=== PATIENT | male | born 1995 | race Caucasian/White ===

== ENCOUNTER 2025-05-10 15:39 | Emergency (ER) | payer OTHER, SELFPAY ==
[2025-05-10 15:45] VITALS: BP 158/115
[2025-05-10 16:34] LABS: ALT (SGPT) 78 U/L (0-50); AST (SGOT) 144 U/L (17-59); Albumin 5.4 g/dl (3.5-5.0); Alkaline Phosphatase 81 U/L (38-126); Blood Urea Nitrogen 19 mg/dl (9-20); Calcium 10.1 mg/dl (8.4-10.2); Carbon Dioxide 21 mmol/L (22-30); Chloride 96 mmol/L (98-107); Glucose 111 mg/dl (70-99); Lipase 173 U/L (23-300); Potassium 3.8 mmol/L (3.5-5.1); Sodium 131 mmol/L (135-145); Total Protein 8.1 g/dl (6.3-8.2); eGFR > 60.00
[2025-05-10 16:42] LABS: Hematocrit 35.2 % (39.0-52.0); Hemoglobin 12.9 g/dL (13.0-18.0); Mean Corp Hgb Conc. 36.6 g/dL (33.0-37.0); Mean Corpuscular Volume 100.9 fL (80.0-94.0); Nucleated Red Blood Cells % 0 % (-); Platelet Count 181 10^3/uL (130-400); Red Cell Dist. Width 11.7 % (11.5-14.5)
[2025-05-10 20:06] VITALS: BP 148/107
[2025-05-10 20:07] VITALS: BMI 34.1
--- NOTE | 2025-05-10 20:26 | ED.GENMED ---
History of Present Illness
General
Chief Complaint: Abdominal Symptoms
Time Seen by Provider: 05/10/25 19:50
History of Present Illness
History of Present Illness:
30-year-old male with history of daily alcohol abuse presenting to the emergency department with upper abdominal pain. Patient reports generalized upper abdominal pain for the past several days. Does admit to having a liquor abuse. For the past 2
days, has noticed that his stools have been very dark. Also had an episode of vomiting yesterday, brown in color. Notes general decreased oral intake. He tried OTC medications without relief. Denies any usage of Pepto-Bismol. Reports of
generalized fatigue and lightheadedness. Denies any vomiting of bright red blood. Denies any abdominal surgeries in the past. Denies chest pain or difficulty breathing. Denies any history of GI bleed or stomach ulcers. Does note some general
history of gastric reflux. Denies additional medical complaints
Past History
Past History
ED Past Medical History: Hypothyroidism
ED Past Surgical History: None
Social History
Living: with family
Phy Exam
Physical Exam
Physical Exam:
General: Well-appearing, no clinical signs of dehydration, nontoxic and in no acute distress
HEENT: protecting airway
Neck: appears supple
CV: Normal heart rate, regular rhythm, no evidence of cyanosis
Resp: No accessory muscle use, no increased work of breathing, lungs clear to auscultation bilaterally
Abd: Soft and non-distended, mild tenderness right upper quadrant without rebound or guarding
Extremities: No deformities, no swelling
Neuro: alert, no focal neurologic deficit
: deferred
Rectal: deferred
Psych: Normal affect
Skin: Intact
Course
Orders/Labs/Results
Orders:
Orders
05/10/25 16:03
Complete Blood Count/With Diff Urgent
Comprehensive Metabolic Panel Urgent
Lipase Urgent
05/10/25 20:15
0.9% Sodium Chloride 1000 ml [Nss] 1,000 ml IV BOLUS
Pantoprazole [Protonix IV] 40 mg IV NOW STA
US Abdomen Complete/Upper Urgent
Comment:
Reason For Exam: RUQ pain, ETOH hx
05/10/25 20:26
Type+Screen Urgent
BBK Wristband Number:
PTT Routine
Prothrombin Time Routine
05/10/25 21:59
ABO2 Urgent
BBK Wristband Number:
Associate notified that ABO2 has been ordered: [id number]
Date: 05/10/25
Time: 21:49
Main Gal[facility] Scullion ID: [id number]
Abnormal Lab Results
05/10/25
16:03
RBC 3.49 L 10^6/uL
(4.70-6.10)
Hgb 12.9 L g/dL
(13.0-18.0)
Hct 35.2 L %
(39.0-52.0)
MCV 100.9 H fL
(80.0-94.0)
MCH 37.0 H pg
(27.0-31.0)
MPV 10.5 H fL
(7.4-10.4)
Absolute Lymphs (auto) 1.1 L 10^3/uL
(1.2-3.4)
Lymphocytes % 16.4 L %
(20.5-51.1)
Sodium 131 L mmol/L
(135-145)
Chloride 96 L mmol/L
(98-107)
Carbon Dioxide 21 L mmol/L
(22-30)
Glucose 111 H mg/dl
(70-99)
AST 144 H U/L
(17-59)
ALT 78 H U/L
(0-50)
Albumin 5.4 H g/dl
(3.5-5.0)
05/10/25 16:03
05/10/25 16:03
Vital Signs
Initial and Last Documented VS:
Initial Vital Signs
Temp Pulse Resp BP Pulse Ox
99.3 F 120 16 158/115 100
05/10/25 15:45 05/10/25 15:45 05/10/25 15:45 05/10/25 15:45 05/10/25 15:45
Last Documented Vital Signs
Temp Pulse Resp BP Pulse Ox
99.3 F 89 20 148/107 99
05/10/25 15:45 05/10/25 21:26 05/10/25 21:26 05/10/25 20:06 05/10/25 21:26
MDM/Problems Addressed
MDM/Problems Addressed:
30-year-old male with history of EtOH abuse presenting to the emergency department for upper abdominal pain and concern for dark stools. Vital signs on arrival are blood pressure.
On exam, patient is resting comfortably, no acute distress or discomfort. Minimal tenderness to the upper abdomen without rebound or guarding. Patient afebrile nontoxic. Patient is Hemoccult positive, brown stool. Patient symptoms are concerning
for upper GI bleed, particularly given his history of excessive alcohol abuse. No concern for variceal bleed at this time, any bright red blood by mouth. Labs obtained prior to my assessment, hemoglobin is 12.9, without concern for any significant
GI hemorrhage. Liver enzymes are slightly elevated, consistent with alcohol abuse. Given patient's tenderness on exam, ultrasound imaging of the abdomen. Will administer fluids and pantoprazole. Suspect component of mild dehydration,
tachycardic. Will continue to closely monitor.
23:15 -patient's ultrasound without significant acute abnormality. On reassessment, patient remained stable. Discussed options of admission versus outpatient follow-up. Do feel reasonable for outpatient follow-up given hemodynamic instability,
however patient will need to be started on PPI with more urgent GI follow-up for likely endoscopy. Did discuss importance of EtOH cessation. Also discussed the possibility of admission with GI consultation. Patient would prefer to go home.
Message sent to GI front desk associate for more urgent follow-up. Strict return precautions indicated and patient verbalized understanding
*Pulse Oximetry
SaO2: 99
Oxygen Mode of Delivery: Room air
Patient hypoxic: no
*Critical Care Note
Total Time (30-74mins, 75-104mins- exclusive of procedures): Not Applicable
ED Attending Note
-
Portions of this chart may have been created with voice recognition software.� Occasional wrong word or��sound alike� substitutions may have occurred due to the inherent limitations of voice recognition software.
Discharge Plan
Departure
Patient Disposition: Home (Routine Discharge)
Date of Disposition: 05/10/25
Time of Disposition: 23:21
Patient with high blood pressure during this ER visit?: No
Condition: Good
Discharge Problem:
Upper gastrointestinal bleeding
Instructions: [place] Diet, GI bleed - Discharge instructions
Prescriptions:
New
pantoprazole 20 mg tablet,delayed release (DR/EC)
20 mg PO DAILY Qty: 30 0RF
Referrals:
Josias Soler MD [Family Provider, Family Practice]
Tony Guaman DO [Active, Gastroenterology]
Activity Restrictions/Additional Instructions:
You were seen in the emergency department for dark stools
You were found to have blood in your stool, however your vital signs and blood work was reassuring. We recommend that you follow-up urgently with GI for additional testing. You were started on pantoprazole. Please take daily and adhere to a bland
diet. We also recommend that you stop drinking, which could be contributing to your symptoms.
Please follow-up closely with your primary care physician.
Return to the emergency department for any worsening of your symptoms, or any development of chest pain, difficulty breathing, abdominal pain with persistent vomiting and inability to tolerate food or liquid by mouth (concern for dehydration),
weakness, headache or confusion, fever greater than 100.4, or any additional symptoms that are concerning to you.
Thank you for choosing [facility].
Interventions
Interventions:
*Risk Screen - Suicide Last Done: 05/10/25 20:07
*General Assessment Last Done: 05/10/25 20:07
*Neglect/Abuse Screening Last Done: 05/10/25 20:07
*ED- Fall Risk Assessment Last Done: 05/10/25 20:07
*ED COVID-19 Vaccine History Last Done: 05/10/25 20:07
CS-Cpggkn-Lyxovivzfd Assessment Last Done: 05/10/25 20:09
Discharge Date and Time
Print Language: BELARUSIAN
[2025-05-10] MEDS: PROTONIX IV 40 MG IV (20:29)
[2025-05-10] MEDS: NSS 1000 IV (20:31)
[2025-05-10 20:49] LABS: INR 0.97; PT 13.4 Sec (11.4-14.6)
[2025-05-10 20:50] LABS: APTT 27.1 Sec (23.4-35.0)
[2025-05-10 22:00] VITALS: BP 142/102
[2025-05-10 23:00] VITALS: BP 136/103
[2025-05-11] VITALS: BP 142/97
== END 2025-05-11 00:14 | disposition home or self-care (01) ==
LOC: EMR 15:39
PROVIDERS: Emergency Medicine; EMERGENCY PHYSICIAN Student in an Organized Health Care Education/Training Program; FAMILY PHYSICIAN Family Medicine
DX: K92.2 Gastrointestinal hemorrhage, unspecified (principal); E03.9 Hypothyroidism, unspecified; R42 Dizziness and giddiness; R53.83 Other fatigue
CPT/HCPCS: 96374; 96361; 99284; 76700; 80053; 83690; 85025; 85610; 85730; 86850; 86900; 86901

== ENCOUNTER 2025-05-20 06:28 | Day surgery (SDC) | payer OTHER, SELFPAY | END 2025-05-20 11:41 | disposition home or self-care (01) | LOC: GI 06:28 | PROVIDERS: ATTENDING PHYSICIAN Internal Medicine Gastroenterology | DX: R10.13 Epigastric pain (principal); R10.31 Right lower quadrant pain; K29.70 Gastritis, unspecified, without bleeding; K92.1 Melena | CPT/HCPCS: 43239; 88305; 88342 ==

== ENCOUNTER 2025-07-06 14:29 | Emergency (ER) | payer OTHER, SELFPAY ==
[2025-07-06 14:36] VITALS: BP 141/93
--- NOTE | 2025-07-06 15:06 | ED.GENMED ---
History of Present Illness
General
Chief Complaint: Withdrawal Symptoms
Time Seen by Provider: 07/06/25 14:51
Nursing documentation reviewed up to this point in time: agreed with
History of Present Illness
History of Present Illness:
30-year-old male presents to the ER for evaluation of possible alcohol withdrawal. Patient denies any prior history of alcohol withdrawal seizures. He states that he drinks between 10 and 20 shots of vodka daily, his last ingestion was at 3:00
this morning. He reports poor appetite over the past several days. He feels nauseated but has not had any vomiting. He denies any prior history of similar abdominal discomforts. He had been seen previously this year for symptoms of alcohol use
disorder, he has never been to rehab and does not believe that he would like to go to rehab today. No fevers or chills. No syncope. No change in vision. Positive mild headache
Past History
Past History
ED Past Medical History: Hypothyroidism
ED Past Surgical History: None
Social History
Living: with family
Review of Systems
Review of Systems
Allergies reviewed?: Yes
Phy Exam
Physical Exam
Physical Exam:
Patient is awake, alert, appears in no acute distress, positive alcohol on breath, diffusely tremulous, moving himself slowly around the room but with a steady gait head is NCAT, PERRL, EOMI mucous membranes moist, conjunctiva pink, heart regular
rate and rhythm without murmurs or ectopy, lungs are clear to auscultation without wheezes rales or rhonchi, no JVD, abdomen is soft and nontender on palpation, extremities without edema, GCS is 15, no asterixis, no palmar erythema
Course
Orders/Labs/Results
Orders:
Orders
07/06/25 14:51
Electrocardiogram (*1) Urgent
Reason for Study: Palpitations
Bedside Glucose- Treatment ONCE
EKG- Treatment ONCE
Urine Drug Abuse Screen Urgent
Pulse Ox/cont/shift [RESP] Routine
Quantity: 1
07/06/25 14:59
0.9% Sodium Chloride 1000 ml [Nss] 1,000 ml IV BOLUS
Thiamine Injection 100 mg IV NOW STA
diazePAM [Valium Injection] 10 mg IV NOW STA
07/06/25 15:21
Acetaminophen Urgent
Alcohol Urgent
Complete Blood Count/No Diff Urgent
Comprehensive Metabolic Panel Urgent
Salicylate Urgent
07/06/25 16:41
Lorazepam [Ativan] 2 mg PO NOW STA
Abnormal Lab Results
07/06/25
15:21
RBC 4.63 L 10^6/uL
(4.70-6.10)
MCV 97.4 H fL
(80.0-94.0)
MCH 33.5 H pg
(27.0-31.0)
Plt Count 421 H 10^3/uL
(130-400)
Carbon Dioxide 15 L mmol/L
(22-30)
BUN 7 L mg/dl
(9-20)
Albumin 5.3 H g/dl
(3.5-5.0)
Salicylates < 1.0 L mg/dl
(2.0-20.0)
Acetaminophen < 10 L ug/ml
(10-30)
07/06/25 15:21
07/06/25 15:21
Mild decrease CO2 likely related to alcoholic ketoacidosis. CBC within normal limits. Kidney function preserved. Alcohol level negative.
Vital Signs
Initial and Last Documented VS:
Initial Vital Signs
Temp Pulse Resp BP Pulse Ox
97.7 F 122 18 141/93 98
07/06/25 14:36 07/06/25 14:36 07/06/25 14:36 07/06/25 14:36 07/06/25 14:36
Last Documented Vital Signs
Temp Pulse Resp BP Pulse Ox
97.7 F 87 15 141/93 98
07/06/25 14:36 07/06/25 15:30 07/06/25 15:00 07/06/25 14:36 07/06/25 15:33
MDM/Problems Addressed
Differential Diagnosis Includes:
Differential diagnosis to consider but not limited to alcoholic gastritis, alcohol withdrawal, pancreatitis, alcohol use disorder along with other etiologies considered
*Pulse Oximetry
SaO2: 98
Oxygen Mode of Delivery: Room air
Patient hypoxic: no
*EKG
Interpreted by ED Provider?: Yes (I independently viewed and interpreted twelve-lead EKG showing normal sinus rhythm, no ectopy, rate 82, leftward axis, no ST elevation, T wave inversions noted in the precordium likely related to persistent juvenile
T wave pattern, no evidence for acute ischemia, no prior for comparison)
*Research Compliance Specialist Interpretation
Rate: normal (I independently viewed and interpreted rhythm strip showing normal sinus rhythm, no ectopy)
*Critical Care Note
Total Time (30-74mins, 75-104mins- exclusive of procedures): Not Applicable
Update Note
Update Note:
Will give IV fluids, thiamine and Valium while awaiting screening labs. Patient agrees with plan at current. Will also consult [facility] for further consideration of rehab.
1814:Patient had significant improvement in his shakiness after IV Valium administered. Patient able to tolerate ariella yenny. He was given dose of oral Ativan along with trial of p.o. which he tolerated well. Patient seen by counselor to help
provide outpatient resource information with regards to alcohol use disorder. Patient feels comfortable with plan for discharge home. Patient prescribed Librium taper. He has no questions at the current time. Will discharge
ED Attending Note
-
Portions of this chart may have been created with voice recognition software.� Occasional wrong word or��sound alike� substitutions may have occurred due to the inherent limitations of voice recognition software.
Discharge Plan
Departure
Patient Disposition: Home (Routine Discharge)
Date of Disposition: 07/06/25
Time of Disposition: 18:14
Patient with high blood pressure during this ER visit?: Yes
Discharge Problem:
Alcohol use disorder
Instructions: Alcohol Withdrawal (DC), Alcohol Use Disorder (DC), BLOOD PRESSURE
Prescriptions:
New
chlordiazepoxide HCl 25 mg capsule
50 mg PO DIRECTED Qty: 20 0RF
Rx Instructions:
50mg q6h day 1 then 50mg q8 day2 then 50mg q12 day 3 then 50mg once day 4 then stop
No Action
pantoprazole 20 mg tablet,delayed release (DR/EC)
20 mg PO DAILY Qty: 30 0RF
Activity Restrictions/Additional Instructions:
Take chlordiazepoxide as prescribed to help minimize symptoms of alcohol withdrawal. Please do not drink alcohol while using this medication. Encourage fluids. Follow a bland diet until your symptoms improve. Please follow-up with your primary
care physician and additional outpatient resources as provided here in the ER for assistance with abstaining from future alcohol use. Return to the ER for any concerns
Interventions
Interventions:
*Risk Screen - Suicide Last Done: 07/06/25 14:36
*General Assessment Last Done: 07/06/25 14:36
*Neglect/Abuse Screening Last Done: 07/06/25 14:36
*ED- Fall Risk Assessment Last Done: 07/06/25 15:13
*ED COVID-19 Vaccine History Last Done: 07/06/25 15:13
ED- Neurological Assessment Last Done: 07/06/25 15:33
ED-Psychological Assessment Last Done: 07/06/25 15:33
Discharge Date and Time
Print Language: DJIBOUTIAN
[2025-07-06] MEDS: THIAMINE INJECTION 100 MG IV (15:20)
[2025-07-06] MEDS: VALIUM INJECTION 10 MG IV (15:20)
[2025-07-06] MEDS: NSS 1000 IV (15:20)
[2025-07-06 15:21] LABS: Glucose - Point of Care 97 mg/dl (70-99)
[2025-07-06 16:01] LABS: Hematocrit 45.1 % (39.0-52.0); Hemoglobin 15.5 g/dL (13.0-18.0); Mean Corp Hgb Conc. 34.4 g/dL (33.0-37.0); Mean Corpuscular Volume 97.4 fL (80.0-94.0); Platelet Count 421 10^3/uL (130-400); Red Cell Dist. Width 11.9 % (11.5-14.5)
[2025-07-06 16:14] LABS: ALT (SGPT) 27 U/L (0-50); AST (SGOT) 38 U/L (17-59); Acetaminophen < 10 ug/ml (10-30); Albumin 5.3 g/dl (3.5-5.0); Alkaline Phosphatase 87 U/L (38-126); Blood Urea Nitrogen 7 mg/dl (9-20); Calcium 9.8 mg/dl (8.4-10.2); Carbon Dioxide 15 mmol/L (22-30); Chloride 103 mmol/L (98-107); Glucose 99 mg/dl (70-99); Potassium 4.5 mmol/L (3.5-5.1); Salicylate < 1.0 mg/dl (2.0-20.0); Sodium 139 mmol/L (135-145); Total Protein 8.1 g/dl (6.3-8.2); eGFR > 60.00
[2025-07-06] MEDS: ATIVAN 2 MG PO (17:25)
[2025-07-06 17:42] VITALS: BP 136/95
== END 2025-07-06 18:46 | disposition home or self-care (01) ==
LOC: EMR 14:29
PROVIDERS: EMERGENCY PHYSICIAN Emergency Medicine; FAMILY PHYSICIAN Family Medicine
DX: F10.90 Alcohol use, unspecified, uncomplicated (principal); R03.0 Elevated blood-pressure reading, without diagnosis of hypertension; E03.9 Hypothyroidism, unspecified
CPT/HCPCS: 99284; 96374; 96375; 96361 ×2; 80053; 80143; 80179; 82077; 82962; 85027; 93005